=== PATIENT | female | born 1965 | race Caucasian/White ===

== ENCOUNTER 2020-12-02 15:01 | Emergency (ER) | payer SELFPAY ==
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
[2020-12-02 15:49] VITALS: BP 112/71; PULSE 72; RESP 20; TEMP 36.7; O2SAT 97
[2020-12-02 16:48] VITALS: BP 132/76; PULSE 90; RESP 20; TEMP 36.7; O2SAT 98
== END 2020-12-02 16:50 | disposition home or self-care (01) ==
PROVIDERS: Emergency Provider Family Medicine; PCP Physician Assistant
DX: S90.01XA Contusion of right ankle, initial encounter (principal); W22.8XXA Striking against or struck by other objects, initial encounter
CPT/HCPCS: 73590; 73610; 99282; 99284